=== PATIENT | female | born 1940 | race Caucasian/White ===

== ENCOUNTER 2016-09-19 22:42 | Emergency (ER) | payer OTHER, MEDICARE ==
[~2016-09-19] VITALS: Ht 160 cm; Wt 55.8 kg
[~2016-09-19 22:42] MED LIST: BENTYL 10 MG CA10 MG PO; COLACE100 MG PO; Compazine PO; FOSAMAX 70MG70 MG PO; GOOD NEIGHBOR650 M1 PO; IMITREX PO; IMITREX50 MG PO; LEVSIN0.125 MG PO; MIRALAX17 GM PO; TYLENOL TAB 32325 MG PO; ZOFRAN ODT4 MG PO
--- NOTE | 2016-09-19 23:24 | ED HEADACHE COMPLAINT ---
History of Present Illness General Chief Complaint: Headache Stated Complaint: MIGRAINE JAMES'S CAUSING NAUSEA Source: patient Exam Limitations: no limitations Vital Signs & Intake/Output Vital Signs & Intake/Output Vital Signs Date Time Temp Pulse Resp B/P Pulse O2 O2 Flow FiO2 Ox Delivery Rate 09/20 0047 77 20 184/85 93 Room Air 09/19 2246 97.1 83 18 149/83 96 Room Air ED Intake and Output 09/20 0000 09/19 1200 Intake Total Output Total Balance Patient 123 lb Weight Allergies Coded Allergies: Penicillins ([facility] 12/17/15) ibupro[facility] ([facility] 12[facility]17[facility]) Uncoded Allergies: [facility]ONALDS ([facility] 12/17/11) Reconcile Medications Alendronate Sodium (Fosamax 70MG) 70 MG TAB 1 TAB PO QW OSTEOPOROSIS ( Reported) in the morning, at least 30 minutes before the first food, beverage, or medication of the day Ondansetron (Zofran Odt) 4 MG TAB.RAPDIS 1 TAB SL TID PRN NAUSEA Oxycodone HCl 5 MG TABLET 1 TAB PO TID PRN SEVERE PAIN SIX TABS..[id number] Polyethylene Glycol 3350 (Miralax) 17 GRAM/DOSE POWDER 17 GM PO TID PRN constipation mix with water, juice, soda, coffee or tea Sumatriptan Succinate (Imitrex) 50 MG TABLET 1 TAB PO Q2HR PRN MIGRAINE MAX 3 PILLS IN 24 HOURS Triage Note: PT TO TRIAGE WITH C/O MIGRAINE 10/10 AND NAUSEA x5DAYS. NO OTHER COMPLAINTS. VSS. Triage Nurses Notes Reviewed? yes Onset: Gradual Duration: week(s):, waxing and waning Timing: recent history Quality/Severity: moderate Head Injury Location: right frontal Modifying Factors: Improves With: rest. Associated Symptoms: nausea photophobia aura HPI: 76-year-old woman history migraine headaches presents with 2 week history of headache. She states that the headache is mostly on her right side, associated with an aura, mild nausea, mild photophobia. She has no trouble seeing or chewing. She has no syncopal type symptoms or fever. She usually takes Tylenol or has taken cocci codon in the past. She is otherwise well. Past History Travel History Traveled to [place] past 21 day No Medical History Any Pertinent Medical History? see below for history Neurological: STROKE EENT: NONE Cardiovascular: NONE Respiratory: NONE Gastrointestinal: constipation, chronic abdominal pain Hepatic: NONE Renal: NONE Musculoskeletal: osteoporosis Psychiatric: NONE Endocrine: NONE Blood Disorders: NONE Cancer(s): NONE HEALTH POLICY ANALYST/Reproductive: NONE History of MRSA: No History of VRE: No History of CDIFF: No Surgical History Surgical History: appendectomy, , lysis of adhesions Psychosocial History Who do you live with Son Services at Home None What is your primary language Turkmen Tobacco Use: Current Daily Use Daily Tobacco Use Amount/Type: => 5 Cigarettes daily Family History Family History, If Any: FATHER, ; Cause: Liver failure. MOTHER, ; Cause: Leukemia. Hx Contributory? No Review of Systems Review of Systems Constitutional: Reports: no symptoms. Eyes: Reports: no symptoms. Ears, Nose, Throat, Mouth: Reports: no symptoms. Respiratory: Reports: no symptoms. Cardiovascular: Reports: no symptoms. Gastrointestinal/Abdominal: Reports: no symptoms. Genitourinary: Reports: no symptoms. Musculoskeletal: Reports: no symptoms. Skin: Reports: no symptoms. Neurological/Psychological: Reports: no symptoms. Hematologic/Endocrine: Reports: no symptoms. Endocrine: Reports: no symptoms. Immunologic/Allergic: Reports: no symptoms. All Other Systems: Reviewed and Negative Physical Exam Physical Exam General Appearance: well developed/nourished, mild distress Head: atraumatic, normal appearance Eyes: Bilateral: normal appearance, PERRL, EOMI. Ears, Nose, Throat: normal pharynx, normal ENT inspection, hearing grossly normal Neck: normal inspection, supple, full range of motion Respiratory: normal breath sounds, chest non-tender, no respiratory distress, quiet respiration, lungs clear Cardiovascular: regular rate/rhythm Gastrointestinal: normal bowel sounds, soft, non-tender, no organomegaly Back: normal inspection Extremities: normal inspection Psychiatric: awake, alert, oriented x 3 Cranial Nerves: normal hearing, normal speech, PERRL Coordination/Gait: normal finger to nose, normal gait Motor/Sensory: no motor/sensory deficits Reflexes: 1+: bicep (R), bicep (L). Skin: intact, normal color, warm/dry Core Measures Severe Sepsis Present: No Septic Shock Present: No Progress Differential Diagnosis: cluster JAMES, intracranial Hem., migraine JAMES, musculoskeletal pain, sinusitis, tension JAMES Plan of Care: Orders Procedure Date/time Status CT HEAD WO IV CONTRAST 09/19 2336 Active Current Medications Sig/Mekhi Start time Last Medication Dose Stop Time Status Admin Acetaminophen 975 MG ONCE ONE 09/19 2344 UNVr (Tylenol) 09/19 2345 Ondansetron HCl 4 MG ONCE ONE 09/19 2344 UNVr (Zofran) 09/19 2345 Sumatriptan Succinate 6 MG ONE ONE 09/19 2344 UNVr (Imitrex 6MG Per 09/19 2345 0.5ML Inj) Diagnostic Imaging: Viewed by Me: CT Scan. Discussed w/RAD: CT Scan. Radiology Impression: head ct... no bleed, no acute change. ... full report below. Comments: PATIENT: EDGAR FORDE PRESENT AGE: 76 PATIENT ACCOUNT NO: [id number] : 39 LOCATION: [facility] ORDERING PHYSICIAN: MELIDA LARA MD SERVICE DATE: 09/19/16 EXAM TYPE: CAT - CT HEAD WO IV CONTRAST EXAMINATION: CT HEAD WITHOUT CONTRAST CLINICAL INFORMATION: Headache COMPARISON: 01/21/[address] scan TECHNIQUE: Contiguous axial imaging was performed from the skull base to vertex without intravenous administration of contrast. DLP: 600.71 mGy-cm FINDINGS: There is no evidence of acute intracranial hemorrhage or territorial infarction. No abnormal mass effect or midline shift is seen. Leija to white matter differentiation is well preserved. No extra-axial fluid collections are identified. The ventricles are normal in size. Atherosclerotic calcifications of the cavernous parts of bilateral carotid arteries noted. The osseous structures and soft tissues are normal. The mastoid air cells and visualized portions of the paranasal sinuses are well aerated. IMPRESSION: No acute intracranial hemorrhage or CT sign of acute territorial ischemia. DICTATED BY: DEISY NUNEZ MD DATE/TIME DICTATED:09/20/161 FAMILY ADVOCATE:KATHARINE DATE/TIME TRANSCRIBED:09/20/161 CONFIDENTIAL, DO NOT COPY WITHOUT APPROPRIATE AUTHORIZATION. <Electronically signed in Other Vendor System> SIGNED BY: DEISY NUNEZ MD 09/20/16 0007 Departure Departure Disposition: HOME OR SELF CARE Condition: Stable Clinical Impression Primary Impression: Migraine Referrals: ANNA SANTILLAN MD (PCP/Family) Departure Forms: Customer Survey General Discharge Information Prescriptions: Current Visit Scripts Sumatriptan Succinate (Imitrex) 1 TAB PO Q2HR PRN MIGRAINE #9 TAB Ref 1 MAX 3 PILLS IN 24 HOURS Oxycodone HCl 1 TAB PO TID PRN SEVERE PAIN #6 TAB SIX TABS..[id number] Ondansetron (Zofran Odt) 1 TAB SL TID PRN NAUSEA #10 TAB Ref 1 Comments 09/20/16, 123am.... pt feeling better... benign head ct... pt referred to neurologist... close follow up advised.
--- NOTE | 2016-09-20 00:07 | CT SCAN REPORT ---
EXAMINATION: CT HEAD WITHOUT CONTRAST CLINICAL INFORMATION: Headache COMPARISON: 01/21/[address] scan TECHNIQUE: Contiguous axial imaging was performed from the skull base to vertex without intravenous administration of contrast. DLP: 600.71 mGy-cm FINDINGS: There is no evidence of acute intracranial hemorrhage or territorial infarction. No abnormal mass effect or midline shift is seen. Leija to white matter differentiation is well preserved. No extra-axial fluid collections are identified. The ventricles are normal in size. Atherosclerotic calcifications of the cavernous parts of bilateral carotid arteries noted. The osseous structures and soft tissues are normal. The mastoid air cells and visualized portions of the paranasal sinuses are well aerated. IMPRESSION: No acute intracranial hemorrhage or CT sign of acute territorial ischemia.
[2016-09-20 00:47] VITALS: BP 184/85
[2016-09-20] MEDS ORDERED: OXYCODONE HCL5 M1 PO (01:22)
[2016-09-20] MEDS ORDERED: IMITREX50 M1 PO (01:22)
[2016-09-20] MEDS ORDERED: ZOFRAN ODT4 M1 SL (01:22)
== END 2016-09-20 01:34 ==
LOC: ERH 22:42
DX: G43.909 Migraine, unspecified, not intractable, without status migrainosus (principal)
CPT/HCPCS: 96372; J3030; J3101